=== PATIENT | female | born 1990 | race Asian ===

== ENCOUNTER 2019-01-13 04:10 | Emergency (ER) | payer BC ==
[~2019-01-13] VITALS: Ht 149.9 cm; Wt 38.1 kg
[2019-01-13 04:14] VITALS: BP 137/79
--- NOTE | 2019-01-13 04:17 | NUR ---
PT [facility]IA [employer]. CO ANXIETY X 1 FOR 1 HOUR. TOOK LORA[place]PAM 1 HOUR PRIOR TO [facility] ARRIVAL. SUDDENLY AWOKE INTO A PANIC ATTACK. DENIES PAIN. EVEN UNLABORED BREATHING. NO SIGNS OF ACUTE DISTRESS AT THIS TIME. AFEBRILE. AOX4. ABLE TO VERBALIZE NEEDS. BED IN LOWEST POSITION. SR UP X4. HOB 30. MADE AWARE. WILL CONTINUE TO MONITOR.
[2019-01-13] MEDS ORDERED: ALPRAZolam 0.5 MG TAB PO ONE (04:20)
--- NOTE | 2019-01-13 04:36 | NUR ---
FAMILY AT BEDSIDE AT THIS TIME.
[2019-01-13 04:47] VITALS: BP 137/79
--- NOTE | 2019-01-13 04:48 | NUR ---
Patient discharged with v/s stable. Written and verbal after care instructions given and explained. Patient verbalized understanding. Ambulatory with steady gait. All questions addressed prior to discharge. Advised to follow up with PMD.
== END 2019-01-13 04:47 | disposition home or self-care (01) ==
LOC: MED 04:10
DX: F41.9 Anxiety disorder, unspecified (principal)
CPT/HCPCS: 99284